=== PATIENT | female | born 1990 | race Caucasian/White ===

== ENCOUNTER 2021-04-11 22:10 | Emergency (ER) | payer SELFPAY ==
[~2021-04-11] VITALS: Ht 160 cm; Wt 67.6 kg
[2021-04-11 22:30] VITALS: BP 115/71
--- NOTE | 2021-04-11 22:33 | NUR ---
TO LOBBY A/W BED AMBULATORY
--- NOTE | 2021-04-11 23:34 | NUR ---
PT TAKEN TO BED 4
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
[2021-04-11 23:46] VITALS: BP 115/71
--- NOTE | 2021-04-11 23:47 | NUR ---
Dr. Gonzales examining patient.
[2021-04-11] MEDS ORDERED: KETOROLAC 30 MG/ML VIAL IM ONE (23:55)
--- NOTE | 2021-04-12 00:04 | NUR ---
PT WITH IUD. ERMD MADE AWARE. NO FURTHER NEED FOR URINE TEST.
--- NOTE | 2021-04-12 00:17 | NUR ---
PT TAKEN TO CT
[2021-04-12] MEDS ORDERED: NAPR-54 PO (01:35)
== END 2021-04-12 01:50 | disposition home or self-care (01) ==
LOC: MED 22:10
DX: S06.0X9A Concussion with loss of consciousness of unspecified duration, initial encounter (principal); S16.1XXA Strain of muscle, fascia and tendon at neck level, initial encounter; V49.3XXA Car occupant (driver) (passenger) injured in unspecified nontraffic accident, initial encounter; Y93.89 Activity, other specified; Y92.89 Other specified places as the place of occurrence of the external cause; Y99.8 Other external cause status
CPT/HCPCS: 70450; 72125; 96372; 99285; J1885